=== PATIENT | male | born 1940 | race Caucasian/White ===

== ENCOUNTER 2017-01-02 20:52 | Inpatient (IN) | payer OTHER, MEDICARE ==
[~2017-01-02] VITALS: Ht 167.6 cm; Wt 85.5 kg
[2017-01-02 01:45] VITALS: BP 133/69; PULSE 68; RESP 20; TEMP 97; O2SAT 97
[~2017-01-02 20:52] MED LIST: AMLO5 PO; LISI-515 PO; OMEP20TA PO; SIMV40TA PO; TRAM50TA PO
[2017-01-02 21:10] VITALS: BP 142/81; PULSE 72; RESP 18; TEMP 97.9; O2SAT 100
[2017-01-02 21:15] LABS: MEAN CORPUSCULAR HGB CONC 29.5 % (32.0-36.0)
[2017-01-02] MEDS ORDERED: ACETAMINOPHEN 325 MG TAB PO PRN (21:15)
[2017-01-02] MEDS ORDERED: SENNOSIDES 8.6 MG TAB PO PRN (21:15)
[2017-01-02] MEDS ORDERED: NALOXONE HCL 0.4 MG/ML AMP IV PRN (21:15)
[2017-01-02] MEDS ORDERED: SODIUM CHLOR 0.9% 250 ML INJ 250 ML IV ONE (21:15)
[2017-01-02] MEDS ORDERED: FUROSEMIDE 20 MG/2 ML VIAL IV ONE (21:15)
[2017-01-02] MEDS ORDERED: MAGNESIUM HYDROXIDE SUSP 30 ML CUP PO PRN (21:15)
[2017-01-02] MEDS ORDERED: ONDANSETRON HCL 4 MG/2 ML VIAL IVP PRN (21:15)
[2017-01-02 21:57] LABS: REVIEW FLAG FINAL
[2017-01-02 22:01] LABS: HEMATOCRIT 20.5 % (39.0-51.0)
[2017-01-02 22:33] VITALS: PULSE 71
[2017-01-03] VITALS (9 sets, daily range): BP systolic 123–145; BP diastolic 63–79; PULSE 57–98; RESP 16–20; TEMP 96.6–98.6; O2SAT 96–100
[2017-01-03] MEDS: PANTOPRAZOLE SOD 40 MG DELAYED RELEASE TAB PO SCH ×2 (01:38→08:27)
[2017-01-03] MEDS ORDERED: TEMAZEPAM 7.5 MG CAP PO ONE (01:45)
[2017-01-03 08:18] LABS: POTASSIUM 3.6 MEQ/L (3.5-5.1)
[2017-01-03 08:20] LABS: AUTOMATED NEUTROPHIL # 4.8 TH/MM3 (1.8-7.7); BASOPHIL % 0.4 % (0.0-2.0); EOSINOPHIL % 0.3 % (0.0-4.0); HEMATOCRIT 25.5 % (39.0-51.0); LYMPH % 19.7 % (9.0-44.0); LYMPHOCYTE # 1.3 TH/MM3 (1.0-4.8); MEAN CELL VOLUME 67.3 FL (80.0-100.0); MEAN CORPUSCULAR HEMOGLOBIN 19.8 PG (27.0-34.0); MONO % 8.3 % (0.0-8.0); NEUT % 71.3 % (16.0-70.0); PLATELET COUNT 295 TH/MM3 (150-450); RED BLOOD COUNT 3.78 MIL/MM3 (4.50-5.90); RED CELL DISTRIBUTION WIDTH 24.5 % (11.6-17.2); WHITE BLOOD COUNT 6.6 TH/MM3 (4.0-11.0)
[2017-01-03 08:26] LABS: HEMO FLAGS AUTO DIFF
[2017-01-03 08:53] LABS: PLATELET ESTIMATE SMEAR NORMAL (NORMAL); PLATELET MORPHOLOGY NORMAL (NORMAL); ROULEAUX PRESENT (NORMAL); SCAN/DIFF AUTO DIFF CONFIRMED
--- NOTE | 2017-01-03 12:03 | HHI.HP ---
[facility] Non-Staff Admission Diagnosis Diagnoses: (1) Anemia Diagnosis: Principal (2) Hypertension Diagnosis: Secondary (3) Hyperlipidemia Diagnosis: Secondary Chief Complaint: Brought in by family because he looked yellow Travel History International Travel<30 Days: No Contact w/Intl Traveler <30 Da: No Traveled to Known Affected Are: No History of Present Illness Written by Ric Ambrocio, acting as scribe for Dr. Kendall on 01/03/17 at 11:55. 76 year-old male with known history of hypertension, hyperlipidemia who presented to hospital at the request of his family because he looked yellow. The patient has been in normal state of health taking care of his who is had a stroke. He indicates that his family noticed that he may be turning yellow so they brought him to the hospital for evaluation. Patient had workup done emergency department found to have severe anemia with hemoglobin 5.3. The patient has been asymptomatic without any shortness of breath, dyspnea , fatigue. He indicates that he has not noticed any dark coloration to his stool or any bright red blood. 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 Approximate one time per week. Patient denies any bucket wash operator and has not had any recent endoscopy. Patient has had a weight loss of 12 pounds over the last 3 months. Review of Systems Constitutional: COMPLAINS OF: Weight loss, DENIES: Diaphoretic episodes, Fatigue, Fever, Weight gain, Chills, Dizziness, Change in appetite, Night Sweats Eyes: DENIES: Blurred vision, Diplopia, Eye inflammation, Eye pain, Vision loss , Double Vision Ears, nose, mouth, throat: COMPLAINS OF: Vertigo, DENIES: Hearing loss, Nasal discharge, Throat pain, Ear Pain, Running Nose, Sinus Pain Respiratory: DENIES: Apneas, Cough, Snoring, Wheezing, Hemoptysis, Sputum production, Shortness of breath Cardiovascular: DENIES: Chest pain, Palpitations, Syncope, Dyspnea on Exertion , Lower Extremity Edema, Orthopnea Gastrointestinal: DENIES: Abdominal pain, Black stools, Bloody stools, Constipation, Diarrhea, Nausea, Vomiting, Difficulty Swallowing, Anorexia Neurologic: DENIES: Abnormal gait, Headache, Localized weakness, Paresthesias, Seizures, Speech Problems, Tremor, Poor Balance Past Family Social History Past Medical History Hypertension Hyperlipidemia Past Surgical History Bilateral ankle surgery Reported Medications Reported Meds & Active Scripts Active Reported Simvastatin 40 Mg Tab 40 Mg PO HS Lisinopril 20 Mg Tab 20 Mg PO DAILY Omeprazole 20 Mg Tab 20 Mg PO DAILY Tramadol (Tramadol HCl) 50 Mg Tab 50 Mg PO Q6H PRN Norvasc (Amlodipine Besylate) 5 Mg Tab 5 Mg PO DAILY Allergies: Coded Allergies: No Known Allergies (Unverified , 01/02/17) Family History Reviewed and rather unremarkable. He indicates that his sister had had cancer but unknown type. Social History Patient is and takes care of his at home. He does have 6 children. Denies any tobacco or illicit drug use. Does drink alcohol every blue vaca Physical Exam Vital Signs Vital Signs Date Time Temp Pulse Resp B/P Pulse Ox O2 Delivery O2 Flow Rate FiO2 01/03/17 08:00 96.9 60 20 129/79 100 01/03/17 04:11 97.4 66 20 123/69 98 01/03/17 04:00 97.4 66 20 123/69 98 01/03/17 03:56 97.0 98 20 123/72 97 01/03/17 01:25 96.6 80 20 136/78 98 01/03/17 00:00 97.1 69 16 143/67 97 01/02/17 22:33 71 01/02/17 21:10 97.9 72 18 142/81 100 Physical Exam GENERAL: Well-developed, well-nourished, in no acute distress. alert and orientated HEENT: Head is normocephalic without any lesions or masses noted. Facial features are symmetric. Eyes: Pupils equal round reactive to light. Extraocular muscles are intact. Conjunctivae were clear. Oropharyngeal: Pharynx without any erythema edema. Tongue is midline without deviation. Buccal mucosa is moist without any masses or lesions NECK: Supple without any masses. Trachea midline no deviation. No JVD, no bruits are appreciated CARDIAC: Regular rhythm, regular rate. S1/S2 are heard. No murmurs gallops or rubs. LUNGS: Clear to auscultation bilaterally. No wheeze, rhonchi or rales. No use of accessory muscles on inspiration or expiration. ABDOMEN: Soft, nontender. Nondistended. Bowel sounds heard in all 4 quadrants. No organomegaly or masses. Negative rebound, negative guarding EXTREMITIES: No edema, pulses are equal bilaterally. No cyanosis or clubbing NEUROLOGY: Mood and affect appear appropriate. Cranial nerves II through XII grossly intact. Muscle strength 5/5 in upper and lower extremities bilaterally. Deep tendon reflexes are 2+ in upper and lower extremities bilaterally. Laboratory Laboratory Tests Test 01/02/17 01/02/17 01/03/17 21:30 21:40 07:45 Hemoglobin 5.8 7.5 Hematocrit 20.5 25.5 Blood Type B POSITIVE B POSITIVE Antibody Screen NEGATIVE Crossmatch Leukocyte-Reduced Red Blood Cells Blood Bank Comment White Blood Count 6.6 Red Blood Count 3.78 Mean Corpuscular Volume 67.3 Mean Corpuscular Hemoglobin 19.8 Mean Corpuscular Hemoglobin 29.5 Concent Red Cell Distribution Width 24.5 Platelet Count 295 Mean Platelet Volume 7.6 Neutrophils (%) (Auto) 71.3 Lymphocytes (%) (Auto) 19.7 Monocytes (%) (Auto) 8.3 Eosinophils (%) (Auto) 0.3 Basophils (%) (Auto) 0.4 Neutrophils # (Auto) 4.8 Lymphocytes # (Auto) 1.3 Monocytes # (Auto) 0.5 Eosinophils # (Auto) 0.0 Basophils # (Auto) 0.0 CBC Comment AUTO DIFF Differential Comment AUTO DIFF CONFIRMED Platelet Estimate NORMAL Platelet Morphology Comment NORMAL Rouleau PRESENT Sodium Level 146 Potassium Level 3.6 Chloride Level 109 Carbon Dioxide Level 27.0 Anion Gap 10 Blood Urea Nitrogen 15 Creatinine 0.84 Estimat Glomerular Filtration 89 Rate Random Glucose 98 Calcium Level 8.9 Result Diagram: 01/03/17 0745 01/03/17 0745 Assessment and Plan Problem List: (1) Anemia ICD Code: D64.9 Status: Acute Plan: Unknown etiology at this time, patient does have decreased MCV which could be from chronic iron deficiency with associated GI bleed, malabsorption iron due to duodenitis, Status post transfusion of 2 units of packed red blood cells We'll need to check stool for occult blood Difficult to ascertain etiology due to limited pretransfusion blood for accurate testing Consult bucket wash operator for likely endoscopies Continue trend hemoglobin and hematocrit (2) Hypertension ICD Code: I10 Status: Acute Plan: Blood pressure stable this time Continue home medications (3) Hyperlipidemia ICD Code: E78.5 Status: Acute Plan: Patient's home medications will be started Assessment and Plan DVT prevention Sequential compression devices, avoid chemical prophylaxis due to anemia This note was transcribed by jose cruz Ambrocio. I, Dr. Bonifacio Bradley personally performed the history, physical exam, and medical decision making; and confirmed the accuracy of the information in the transcribed note. Authenticated by Dr. Bonifacio Bradley on 01/03/17 at 14:11. Physician Certification 2 Midnight Certification Type: Admission for Inpatient Services Order for Inpatient Services The services are ordered in accordance with Medicare regulations or non- Medicare payer requirements, as applicable. In the case of services not specified as inpatient-only, they are appropriately provided as inpatient services in accordance with the 2-midnight benchmark. Estimated LOS (days): 2 days is the estimated time the patient will need to remain in the hospital, assuming treatment plan goals are met and no additional complications. Post-Hospital Plan: Not yet determined Problem Qualifiers (1) Anemia: Qualified Code: D64.9 - Anemia, unspecified type Ric Ambrocio Jan 03, 2017 12:03 Bonifacio Lanier MD Jan 03, 2017 14:12
[2017-01-03 15:39] LABS: RETIC % 1.5 % (0.4-3.0)
[2017-01-03 15:59] LABS: REVIEW FLAG FINAL
[2017-01-03] MEDS ORDERED: PEG (High)/E-LYTE SOLN 4000 ML BTL PO ONE (16:30)
[2017-01-03 16:36] LABS: FERRITIN 3 NG/ML (26-388); LDH SERUM 231 U/L (87-241); TRANSFERRIN IRON PROFILE 400 MG/DL (200-360)
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
[2017-01-03 19:04] LABS: HEMATOCRIT 27.9 % (39.0-51.0); MEAN CELL VOLUME 68.6 FL (80.0-100.0); MEAN CORPUSCULAR HEMOGLOBIN 20.7 PG (27.0-34.0); MEAN CORPUSCULAR HGB CONC 30.1 % (32.0-36.0); PLATELET COUNT 333 TH/MM3 (150-450); RED BLOOD COUNT 4.06 MIL/MM3 (4.50-5.90); RED CELL DISTRIBUTION WIDTH 24.9 % (11.6-17.2); WHITE BLOOD COUNT 9.9 TH/MM3 (4.0-11.0)
[2017-01-03 19:07] LABS: HEMO FLAGS AUTO DIFF
[2017-01-03 19:22] LABS: NEUTROPHIL # MANUAL DIFF 8.4 TH/MM3 (1.8-7.7); PLATELET ESTIMATE SMEAR NORMAL (NORMAL); PLATELET MORPHOLOGY NORMAL (NORMAL); POLYS (SEG NEUTROPHILS) 85 % (16-70); SCAN/DIFF FINAL DIFF MANUAL; WBC DIFF SAMPLE 100
[2017-01-04] VITALS: BP 147/78; PULSE 71; RESP 18; TEMP 98.3; O2SAT 96
[2017-01-04 04:00] VITALS: BP 139/87; PULSE 67; RESP 18; TEMP 97.9; O2SAT 98
[2017-01-04 06:40] VITALS: BP 139/87; PULSE 67; RESP 18; TEMP 97.9; O2SAT 98
[2017-01-04] MEDS ORDERED: PROPOFOL 200 MG/20 ML AMP IV ONE (07:15)
[2017-01-04] MEDS ORDERED: LIDOCAINE HCL 1% PF 5 ML AMPULE OTHER ONE (07:15)
--- NOTE | 2017-01-04 07:54 | GIPROC ---
[address], [address] COLONOSCOPY PROCEDURE REPORT EXAM DATE: 01/04/2017 PATIENT NAME: Yariel Rodriguez MR #: [id number] BIRTHDATE: 1940 ENDOSCOPIST: Heike Pennington MD ORDER #: [id number] TILTING SAW OPERATOR: Alanis Dillard RN STATUS: inpatient INDICATIONS: The patient is a 76 yr old male here for a colonoscopy due to iron deficiency anemia Submucosal injection, any substance MEDICATIONS: None and Per Anesthesia. PREP QUALITY: good PREP TYPE:GoLytely ESTIMATED BLOOD LOSS: None CONSENT: The patient understands the risks and benefits of the procedure and understands that these risks include, but are not limited to: sedation, allergic reaction, infection, perforation and/or bleeding. Alternative means of evaluation and treatment include, among others: physical exam, x-rays, and/or surgical intervention. The patient elects to proceed with this endoscopic procedure. medical equipment was checked for proper function. Hand hygiene and appropriate measures for infection prevention was taken. After the risks, benefits and alternatives of the procedure were thoroughly explained, Informed consent was verified, confirmed and timeout was successfully executed by the treatment team. A digital exam revealed hemorrhoids The endoscope was introduced through the anus and advanced to the cecum, which was identified by both the appendix and ileocecal valve. The instrument was then slowly withdrawn as the colon was fully examined. COLON FINDINGS: Diverticulosis sigmoid, descending mass cecum, ulcerated-multiple biopsies taken polyps in ascending-one 5 mm-hot snare polypectomy with complete removal, another flat 1 cm wide polyps-suspicious appearence-hot snare polypectomy with removal, site wa marked with 5 cc Inia ink polyp sessile midtransverse -6 mm-hot snare polypectomy with complete removal polyp splenic flexure -6 mm hot snare polypectomy with complete removal proctitis rectum-biopsy. Retroflexed views revealed internal hemorrhoids and Retroflexed views revealed medium internal hemorrhoids The scope was then completely withdrawn from the patient and the procedure terminated. PROCEDURE WITHDRAWAL TIME:14minutes ADVERSE EVENTS: There were no complications. IMPRESSIONS: 1. Diverticulosis sigmoid, descending mass cecum, ulcerated-multiple biopsies taken polyps in ascending-one 5 mm-hot snare polypectomy with complete removal, another flat 1 cm wide polyps-suspicious appearence-hot snare polypectomy with removal, site wa marked with 5 cc Inia ink polyp sessile midtransverse -6 mm-hot snare polypectomy with complete removal polyp splenic flexure -6 mm hot snare polypectomy with complete removal proctitis rectum-biopsy 2. Retroflexed views revealed internal hemorrhoids 3. Retroflexed views revealed medium internal hemorrhoids 4. Revealed hemorrhoids RECOMMENDATIONS: 1. Await biopsy results. Biopsy results will not be ready for 7-10 days. If you don't hear from us in two weeks, call our office for results. 2. Probiotics from any [employer] or health food store 3. Yearly rectal exams 4. Ct abdomen/pelvis, ct chest cea levels family screening for colon cancer colorectal surgery consult RECALL: Colonoscopy, pending biopsy results Heike Pennington MD eSigned: Heike Pennington MD 01/04/2017 7:54 AM cc: PATIENT NAME: Yariel Rdoriguez MR#: [id number]
--- NOTE | 2017-01-04 07:57 | GIPROC ---
[facility] [address] [place] [address], [address] EGD PROCEDURE REPORT EXAM DATE: 01/04/2017 PATIENT NAME: Yariel Rodriguez MR #: [id number] BIRTHDATE: 1940 ATTENDING: Heike Pennington MD ORDER #: [id number] SECTION HAND: Hannah Mcdermott and Alanis Dillard STATUS: inpatient INDICATIONS: The patient is a 76 yr old male here for an EGD due to iron deficiency anemia PROCEDURE PERFORMED: EGD w/ biopsy MEDICATIONS: None and Per Anesthesia. TOPICAL ANESTHETIC: CONSENT: The patient understands the risks and benefits of the procedure and understands that these risks include, but are not limited to: sedation, allergic reaction, infection, perforation and/or bleeding. Alternative means of evaluation and treatment include, among others: physical exam, x-rays, and/or surgical intervention. The patient elects to proceed with this endoscopic procedure. medical equipment was checked for proper function. Hand hygiene and appropriate measures for infection prevention was taken. After the risks, benefits and alternatives of the procedure were thoroughly explained, Informed consent was verified, confirmed and timeout was successfully executed by the treatment team. The patient was anesthetized with topical anesthesia and the [id number] (Pedi C) endoscope was introduced through the mouth and advanced to the second portion of the duodenum. Retroflexed views revealed a hiatal hernia The gastroscope was then slowly withdrawn and removed. Normal duodenum-biopsy gastritis antrum-biopsy Schatzki's ring. ADVERSE EVENTS: There were no complications. IMPRESSIONS: 1. Normal duodenum-biopsy gastritis antrum-biopsy Schatzki's ring 2. Retroflexed views revealed a hiatal hernia RECOMMENDATIONS: 1. Await biopsy results. Biopsy results will not be ready for 7-10 days. If you don't hear from us in two weeks, call our office for biopsy results. 2. Anti-reflux regimen PATIENT CONDITION: stable DISPOSITION: Inpatient REPEAT EXAM: EGD pending biopsy results Heike Pennington MD eSigned: Heike Pennington MD 01/04/2017 7:56 AM cc:
[2017-01-04] MEDS: PANTOPRAZOLE SOD 40 MG DELAYED RELEASE TAB PO SCH (08:56)
[2017-01-04] MEDS ORDERED: DIATRIZOATE MEGLUM/DIATRIZOATE SOD 9 ML CUP PO ONE (09:00)
[2017-01-04 09:44] LABS: MEAN CORPUSCULAR HGB CONC 29.9 % (32.0-36.0)
[2017-01-04 10:52] LABS: AUTOMATED NEUTROPHIL # 3.9 TH/MM3 (1.8-7.7); BASOPHIL % 0.4 % (0.0-2.0); EOSINOPHIL % 0.6 % (0.0-4.0); HEMATOCRIT 26.9 % (39.0-51.0); LYMPH % 22.6 % (9.0-44.0); LYMPHOCYTE # 1.2 TH/MM3 (1.0-4.8); MEAN CELL VOLUME 68.4 FL (80.0-100.0); MEAN CORPUSCULAR HEMOGLOBIN 20.5 PG (27.0-34.0); MONO % 7.5 % (0.0-8.0); NEUT % 68.9 % (16.0-70.0); PLATELET COUNT 268 TH/MM3 (150-450); RED BLOOD COUNT 3.93 MIL/MM3 (4.50-5.90); RED CELL DISTRIBUTION WIDTH 25.5 % (11.6-17.2); WHITE BLOOD COUNT 5.5 TH/MM3 (4.0-11.0)
[2017-01-04 10:59] LABS: CHLORIDE 110 MEQ/L (98-107); POTASSIUM 3.5 MEQ/L (3.5-5.1); SODIUM (NA) 145 MEQ/L (136-145)
[2017-01-04 11:04] LABS: ANION GAP 6 MEQ/L (5-15); BLOOD UREA NITROGEN 12 MG/DL (7-18)
[2017-01-04 11:07] LABS: ALT (GPT) 20 U/L (12-78); AST (GOT) 17 U/L (15-37); GLOMERULAR FILTRATION RATE 94 ML/MIN (>89)
[2017-01-04 11:08] LABS: HEMO FLAGS AUTO DIFF; TOTAL BILIRUBIN ADULT 0.4 MG/DL (0.2-1.0)
[2017-01-04 11:10] LABS: ALKALINE PHOSPHATASE 72 U/L (45-117)
[2017-01-04] MEDS ORDERED: IOHEXOL 350 MG/ML 10 ML VIAL (for RAD DIAG) IV ONE (11:18)
--- NOTE | 2017-01-04 11:31 | RADRPT ---
EXAM DATE/TIME: 01/04/2017 10:53 [facility] COMPARISON: No previous studies available for comparison. INDICATIONS : Cecal mass. IV CONTRAST: 85 cc Omnipaque 350 (iohexol) IV ; Cumulative dose for multiple exams. RADIATION DOSE: 17.67 CTDIvol (mGy) ; Combined studies - Thorax/Abdomen/Pelvis MEDICAL HISTORY : Gastroesophageal reflux disease. Hypertension. SURGICAL HISTORY : Left hip repair. ENCOUNTER: Initial ACUITY: 1 day PAIN SCALE: 0/10 LOCATION: chest TECHNIQUE: Volumetric scanning of the chest was performed. Using automated exposure control and adjustment of t he mA and/or kV according to patient size, radiation dose was kept as low as reasonably achievable to obtain optimal diagnostic quality images. DICOM format image data is available electronically for review and comparison. FINDINGS: LUNGS: There is a 3 mm pulmonary nodule in the peripheral right middle lobe. Otherwise, the lungs are clear and well aerated. No focal or acute pulmonary infiltrates are demonstrated. PLEURA: There is no pleural thickening or pleural effusion. MEDIASTINUM: The heart and great vessels demonstrate no acute abnormality. There is no mediastinal or hilar lymph adenopathy. AXILLAE: Within normal limits. No lymphadenopathy. SKELETAL: Within normal limits for patient age. MISCELLANEOUS: The visualized upper abdominal organs demonstrate no acute abnormality. CONCLUSION: 1. There is a 3 mm pulmonary nodule in the right middle lobe. This finding is nonspecific. Recommend followup noncontrast CT thorax in 6 months. 2. No focal or acute intrathoracic disease. Eric Gay MD on January 04, 2017 at 11:26 Board Certified Radiologist. This report was verified electronically.
--- NOTE | 2017-01-04 11:41 | RADRPT ---
EXAM DATE/TIME: 01/04/2017 10:53 [facility] COMPARISON: No previous studies available for comparison. INDICATIONS : Cecal mass. IV CONTRAST: 85 cc Omnipaque 350 (iohexol) IV ; Cumulative dose for multiple exams. ORAL CONTRAST: Prescribed oral contrast ingested. RADIATION DOSE: 17.67 CTDIvol (mGy) ; Combined studies - Thorax/Abdomen/Pelvis MEDICAL HISTORY : Gastroesophageal reflux disease. Hypertension. SURGICAL HISTORY : Left hip repair. ENCOUNTER: Initial ACUITY: 1 day PAIN SCALE: 0/10 LOCATION: Abdomen TECHNIQUE: Volumetric scanning of the abdomen and pelvis was performed. Using automated exposure control and ad justment of the mA and/or kV according to patient size, radiation dose was kept as low as reasonably achievable to obtain optimal diagnostic quality images. DICOM format image data is available electro nically for review and comparison. FINDINGS: LOWER LUNGS: The visualized lower lungs are clear. LIVER: Homogeneous density without lesion. There is no dilation of the biliary tree. No calcified gallston es. SPLEEN: Normal size without lesion. PANCREAS: Within normal limits. KIDNEYS: Normal in size and shape. There is no mass, stone or hydronephrosis. There are 2 small cysts along t he lower pole the left kidney measuring 1.1 cm and 0.7 cm. ADRENAL GLANDS: Within normal limits. VASCULAR: There is no aortic aneurysm. BOWEL/MESENTERY: Bowel gas pattern is within normal limits. There is no evidence of obstruction. Contrast is seen thro ughout the small and large bowel. There appears to be a soft tissue concentric lesion involving the r ight ascending colon just above the cecum suspicious for neoplastic disease. There is also some incre ased prominence of the ileocecal valve. ABDOMINAL WALL: Within normal limits. RETROPERITONEUM: There is no lymphadenopathy. BLADDER: No wall thickening or mass. REPRODUCTIVE: Within normal limits. INGUINAL: There is no lymphadenopathy or hernia. MUSCULOSKELETAL: Within normal limits for patient age. No gross lytic or blastic lesions are seen. There is evidence o f previous internal fixation to the left proximal femur. There are degenerative changes present. CONCLUSION: 1. Soft tissue concentric lesion involving the right ascending colon suspicious for neoplastic diseas e. There also appears to be some prominence involving the ileocecal valve. There is no evidence of me chanical obstruction. 2. 2 small benign-appearing left renal cyst area Eric Gay MD on January 04, 2017 at 11:34 Board Certified Radiologist. This report was verified electronically.
[2017-01-04 12:00] VITALS: BP 142/73; PULSE 56; RESP 20; TEMP 97.4; O2SAT 99
[2017-01-04 12:03] LABS: PLATELET ESTIMATE SMEAR NORMAL (NORMAL); PLATELET MORPHOLOGY ENLARGED (NORMAL); SCAN/DIFF AUTO DIFF CONFIRMED
--- NOTE | 2017-01-04 14:07 | HHI.PR ---
Subjective Remarks patient denies cp/sob denies melena sp EGD and colonoscopy this am Objective Vitals Vital Signs Date Time Temp Pulse Resp B/P Pulse Ox O2 Delivery O2 Flow Rate FiO2 01/04/17 12:00 97.4 56 20 142/73 99 01/04/17 08:50 97.1 62 16 92/65 100 01/04/17 06:40 97.9 67 18 139/87 98 01/04/17 04:00 97.9 67 18 139/87 98 01/04/17 00:00 98.3 71 18 147/78 96 01/03/17 20:00 97.9 57 18 145/77 98 01/03/17 16:00 98.5 59 20 131/75 96 I/O 01/03/17 01/03/17 01/03/17 01/04/17 01/04/17 01/04/17 07:00 15:00 23:00 07:00 15:00 23:00 Intake Total 980 ml 750 ml 240 ml 1000 ml 610 ml Output Total 350 ml 300 ml 1000 ml Balance 630 ml 750 ml -60 ml 0 ml 610 ml Intake Oral 480 ml 750 ml 240 ml 1000 ml 610 ml Packed Cells 500 ml Output Urine Total 350 ml 300 ml 1000 ml # Voids 3 5 3 # Bowel Movements 0 2 4 4 1 Result Diagram: 01/04/1790401/04/17904 Imaging Last Impressions Chest CT 01/04/17 0000 Signed Impressions: Service Date/Time: December 10:53 - CONCLUSION: 1. There is a 3 mm pulmonary nodule in the right middle lobe. This finding is nonspecific. Recommend followup noncontrast CT thorax in 6 months. 2. No focal or acute intrathoracic disease. Eric Gay MD Abdomen/Pelvis CT 01/04/17 0000 Signed Impressions: Service Date/Time: December 10:53 - CONCLUSION: 1. Soft tissue concentric lesion involving the right ascending colon suspicious for neoplastic disease. There also appears to be some prominence involving the ileocecal valve. There is no evidence of mechanical obstruction. 2. 2 small benign-appearing left renal cyst area Eric Gay MD Objective Remarks GENERAL: Well-developed, well-nourished, in no acute distress. alert and orientated HEENT: Head is normocephalic without any lesions or masses noted. Facial features are symmetric. Eyes: Pupils equal round reactive to light. Extraocular muscles are intact. Conjunctivae were clear. Oropharyngeal: Pharynx without any erythema edema. Tongue is midline without deviation. Buccal mucosa is moist without any masses or lesions NECK: Supple without any masses. Trachea midline no deviation. No JVD, no bruits are appreciated CARDIAC: Regular rhythm, regular rate. S1/S2 are heard. No murmurs gallops or rubs. LUNGS: Clear to auscultation bilaterally. No wheeze, rhonchi or rales. No use of accessory muscles on inspiration or expiration. ABDOMEN: Soft, nontender. Nondistended. Bowel sounds heard in all 4 quadrants. No organomegaly or masses. Negative rebound, negative guarding EXTREMITIES: No edema, pulses are equal bilaterally. No cyanosis or clubbing NEUROLOGY: Mood and affect appear appropriate. Cranial nerves II through XII grossly intact. Muscle strength 5/5 in upper and lower extremities bilaterally. Deep tendon reflexes are 2+ in upper and lower extremities bilaterally. Medications and IVs Current Medications Medications (Trade) Dose Ordered Sig/Tariq Route Start Time Stop Time Status Last Admin (Tylenol) 650 mg Q4H PRN PO 01/02/17 21:15 (Zofran Inj) 4 mg Q6H PRN IVP 01/02/17 21:15 (Narcan Inj) 0.4 mg UNSCH PRN IV 01/02/17 21:15 (Milk Of Magnesia Liq) 30 ml Q12H PRN PO 01/02/17 21:15 (Senokot) 17.2 mg Q12H PRN PO 01/02/17 21:15 (Protonix) 40 mg DAILY PO 01/02/17 21:30 01/04/17 08:56 Urinary Catheter: No Vascular Central Line Catheter: No A/P Problem List: (1) Anemia ICD Code: D64.9 Status: Acute Plan: Unknown etiology at this time, patient does have decreased MCV which could be from chronic iron deficiency with associated GI bleed, malabsorption iron due to duodenitis, Status post transfusion of 2 units of packed red blood cells We'll need to check stool for occult blood ---> pending 01/04 sp EGD and colonoscopy with biopsies. Colonoscopy showed sigmoid diverticulosis, mass in the descending cecum which is ulcerated, polypoid status post polypectomy. Agree with CT of the chest and abdomen and pelvis to look for any metastatic lesions, colorectal surgery consultation and oncology consultation as per patient's family request. EGD showed gastritis, Schatzki's ring, continue PPI. Iron studies consistent with iron deficiency anemia. Patient status post fusion of packed red blood cells, I will start the patient on oral ferrous sulfate. (2) Hypertension ICD Code: I10 Status: Acute Plan: Blood pressure stable this time Patient had recorded episode of hypotension with systolic blood pressure in the 90s, however this has resolved. Continue antihypertensive medications with holding parameters. (3) Hyperlipidemia ICD Code: E78.5 Status: Acute Plan: Continue statin Assessment and Plan GI prophylaxis: Continue PPI. DVT prophylaxis SCDs, no chemoprophylaxis given severe anemia. Discharge Planning Pending colorectal surgery, oncology consultation, pending CT abdomen and pelvis and chest results. Problem Qualifiers (1) Anemia: Qualified Code: D64.9 - Anemia, unspecified type Bonifacio Lanier MD Jan 04, 2017 14:07
[2017-01-04] MEDS ORDERED: traMADol HCL 50 MG TAB PO PRN (14:15)
[2017-01-04] MEDS: amLODIPine BESYLATE 5 MG TAB PO SCH (14:58)
[2017-01-04 15:31] VITALS: BP 114/69; PULSE 55; RESP 20; TEMP 97.8; O2SAT 97
[2017-01-04 17:11] LABS: MEAN CORPUSCULAR HGB CONC 29.9 % (32.0-36.0)
--- NOTE | 2017-01-04 17:39 | EKG ---
Date Performed: 01/04/2017 Time Performed: 07:06:09 PTAGE: 76 years EKG: SINUS BRADYCARDIA WITH FIRST DEGREE AV BLOCK LOW QRS VOLTAGE IN PRECORDIAL LEADS POSSIBLE R IGHT VENTRICULAR CONDUCTION DELAY ABNORMAL ECG NO PREVIOUS TRACING DOCTOR: Evelyn Gilbert Interpretating Date/Time 01/04/2017 17:35:49
[2017-01-04 18:04] LABS: MEAN CELL VOLUME 68.7 FL (80.0-100.0); MEAN CORPUSCULAR HEMOGLOBIN 20.6 PG (27.0-34.0); PLATELET COUNT 326 TH/MM3 (150-450); RED BLOOD COUNT 4.23 MIL/MM3 (4.50-5.90); RED CELL DISTRIBUTION WIDTH 25.6 % (11.6-17.2); WHITE BLOOD COUNT 10.1 TH/MM3 (4.0-11.0)
[2017-01-04 18:05] LABS: REVIEW FLAG FINAL
--- NOTE | 2017-01-04 18:23 | MB ---
cc: ALLY FREDERICK M.D., JOHN M. MD DATE OF CONSULTATION January 04, 2017 CHIEF COMPLAINT Ascending colon mass. HISTORY OF PRESENT ILLNESS The patient is a 76-year-old male who is particularly healthy. He was brought to the hospital yesterday because of jaundice. He had been feeling well and workup in the emergency department showed a hemoglobin of 8 and a severe anemia, hemoglobin of 5.3 and colonoscopy performed this morning reveals a mass in the ascending colon. The patient denies any chest pain, shortness of breath, dyspnea, fatigue. He has had a 12-13 pound weight loss over the last 3 months as well as some darker stool. He denies any hematuria or hematochezia. He has been moving his bowels between twice a day to every other day and this has not had any change. He denies any abdominal pain or rectal pain. He has had some intermittent nausea and vomiting. PAST MEDICAL HISTORY 1. Hypertensive. 2. Hyperlipidemia. 3. Traumatic brain injury. PAST SURGICAL HISTORY 1. Bilateral ankle surgery. 2. Hip pinning. ALLERGIES None. MEDICATIONS 1. Pravastatin. 2. Lisinopril. 3. Omeprazole. 4. Tramadol. 5. Norvasc. SOCIAL HISTORY The patient denies alcohol or illicit drugs. He does admit to an occasional cigar. He is accompanied by his and his daughter. Per the daughter his has had a severe hemorrhagic stroke and has trouble with her memory. REVIEW OF SYSTEMS The review of systems is negative for chest pain, fevers, weight, night sweats, change in vision, change in hearing, difficulty with mood or mentation, difficulty with ambulation. PHYSICAL EXAMINATION GENERAL: Physical exam reveals an alert male who appears comfortable. NEUROLOGIC: Grossly intact. SKIN: Skin is warm and dry. HEENT: Head is normocephalic, atraumatic. CARDIOVASCULAR: Cardiac there is a regular rhythm. CHEST: Breathing is symmetric bilaterally, nonlabored. ABDOMEN: Soft, nondistended, nontender. EXTREMITIES: Reveal no edema. LABORATORY DATA Laboratory work reveals hemoglobin of 8.0 this morning, up from a sujey of 5.8, white count is 5.5 and platelets are 268. Chemistry is essentially normal. IMAGING STUDIES CT scan of the abdomen reveals a soft tissue concentric lesion involving the ascending colon just above the cecum but with no sign of obstruction and two small benign appearing left renal cyst. CT scan of the chest reveals a 3 mm pulmonary nodule in the right middle lobe which is nonspecific. IMPRESSION Ascending colon mass, most likely carcinoma. PLAN A long discussion was undertaken with the patient and his daughter. I believe that the most appropriate thing if his hemoglobin remains stable overnight would be discharge home with followup in my office next week so we can expedite plan for a minimally invasive ascending colectomy. He will need evaluation by his primary care doctor. I have explained to the daughter that when he leaves the hospital if he begins having any more problems or symptoms they are to call me immediately and there is someone available through our office number 24 hours a day, 7 days a week. The natural staging of colon cancer was discussed with the patient as were the results of his chest and abdominal CT. Thank you very much for your kind referral. Ally Frederick MD KW/EO /5:19 PM /5:57 PM
[2017-01-04] MEDS: FERROUS SULFATE 325 MG (65 MG ELEMENTAL IRON) TAB PO SCH (18:30)
--- NOTE | 2017-01-04 18:35 | MB ---
cc: KAREN TEE M.D. DATE OF CONSULTATION: 01/04/2017. REASON FOR CONSULTATION: Oncology was consulted to render opinion regarding a patient with newly discovered colon mass. REQUESTING PHYSICIAN: Dr. Kendall. HISTORY OF PRESENT ILLNESS: The patient is a 76-year-old male with no significant past medical history brought into the hospital because a family member noted that he looked more yellow. The patient is a rather poor historian. According to his daughter, he has not been feeling well for about the last three weeks. He has increased weakness and he has also been having nausea. He has lost about twelve pounds over the last three months. He also has increased dyspnea on exertion. He was brought into the hospital and was found to have a hemoglobin of 5.8. He had colonoscopy which showed a cecal mass suspicious for colon cancer. He denies any fever or chills. Denies any chest pain or palpitation. Denies any cough. Denies any dysuria or hematuria. He denies any melena or hematochezia. PAST MEDICAL HISTORY: 1. Hypertension. 2. Hyperlipidemia. PAST SURGICAL HISTORY: Bilateral ankle surgery. FAMILY HISTORY: He has seven siblings and only three are living. He has three daughters and three sons, all healthy. A sister has some sort of cancer. SOCIAL HISTORY: He drinks occasionally. He does not smoke. ALLERGIES: NO KNOWN DRUG ALLERGIES. MEDICATION LIST: 1. Lisinopril. 2. Pravastatin. 3. Amlodipine. 4. Protonix. REVIEW OF SYSTEMS: CONSTITUTIONAL: As above. EYES: Denies any blurry vision or double vision. ENT: Denies any mouth sores or voice changes. CARDIOVASCULAR: Denies any chest pressure or palpitations. RESPIRATORY: ____ dyspnea on exertion. Denies any cough. GI: As above. : Denies any dysuria or hematuria. MUSCULOSKELETAL: Negative. HEMATOLOGIC: As above. ENDOCRINE: Negative. DERMATOLOGIC: Negative. PSYCHIATRIC: Negative. NEUROLOGIC: Negative. PHYSICAL EXAMINATION: VITAL SIGNS: Temperature 97.8, blood pressure 114/69, 02 saturation 97%. GENERAL: He is alert and oriented times three and in no acute distress. HEAD, EYES, EARS, NOSE, THROAT: Atraumatic, normocephalic. Pupils equal, round, reactive to light. Extraocular muscles intact. No scleral icterus. OROPHARYNX: Dry mucosa. No lesions. NECK: No thyromegaly. No palpable mass. LYMPHATIC: No palpable cervical, clavicular, axillary or inguinal lymph nodes. CARDIOVASCULAR: Regular S1 and S2. No murmur. LUNGS: Clear to auscultation bilaterally. No wheezing or rhonchi. ABDOMEN: Abdomen soft and nontender. I could not palpate liver or spleen. EXTREMITIES: No cyanosis, no clubbing, no edema. BACK: No paravertebral tenderness. SKIN: No rash or petechiae. NEUROLOGIC EXAM: Nonfocal. LABORATORY DATA: Reviewed. ASSESSMENT: 1. Colon mass suspicious for colon cancer. He presented with symptomatic anemia. Colonoscopy showed a mass in the cecum. It was ulcerated. No active bleeding noted. There were also multiple polyps and hemorrhoids noted. CT scan showed a soft tissue concentric lesion involving the right ascending colon. There is no clear adenopathy noted. There is no distant metastasis noted. CT of the chest showed nonspecific 3 mm nodule but no obvious mass or disease. CEA is normal. Biopsy of the colon mass is pending at this time. 2. Symptomatic anemia. He presented with a hemoglobin of 5.8 consistent with iron deficiency likely due to bleeding from the colonic mass. Upper endoscopy showed gastritis but no obvious bleeding. He was given two units of packed red blood cells transfusion. His hemoglobin has trended up. He will be started on iron supplement. 3. Nonspecific pulmonary nodule noted on CT scan. There was a 3 mm nodule in the right middle lobe and this will need to be monitored. 4. Hypertension. 5. Hyperlipidemia. DISCUSSION: I had an extensive discussion with the patient and multiple family members. We went over the radiologic findings and colonoscopic findings, probable diagnosis and management plan. At this point, the biopsy path is pending. CT did not show obvious metastatic disease. If the pathology confirms colon carcinoma, standard treatment is surgical resection. He has been evaluated by Dr. Frederick. I told them that the final staging will depend on the surgical path. If he has high risk colon cancer then he will need adjuvant chemotherapy. He stated that he will be discharged tomorrow to follow up with Dr. Frederick for definitive surgery. I told him to follow up with oncology after his surgery. They had many questions today which were answered. PLAN: 1. Await biopsy pathology. 2. Follow up with Dr. Frederick for definitive surgery. 3. I told the patient to follow up with oncology after his surgery. 4. Agree with iron supplement. The patient can be discharged from a medical oncology standpoint. Thank you, Dr. Kendall, for asking me to see this patient. MD JONAH Avina/FELIX /5:39 PM /6:03 PM JOSE J
[2017-01-04 20:00] VITALS: BP 124/69; PULSE 71; RESP 16; TEMP 98; O2SAT 95
[2017-01-04] MEDS ORDERED: PRAVASTATIN SOD 80 MG TAB PO SCH (21:00)
[2017-01-04 21:16] LABS: MEAN CORPUSCULAR HGB CONC 29.8 % (32.0-36.0)
[2017-01-04] MEDS ORDERED: TEMAZEPAM 7.5 MG CAP PO ONE (22:15)
[2017-01-05] VITALS: BP 139/73; PULSE 68; RESP 18; TEMP 97.8; O2SAT 92
[2017-01-05 06:24] LABS: HEMATOCRIT 27.8 % (39.0-51.0); MEAN CELL VOLUME 67.3 FL (80.0-100.0); MEAN CORPUSCULAR HEMOGLOBIN 20.1 PG (27.0-34.0); PLATELET COUNT 332 TH/MM3 (150-450); RED BLOOD COUNT 4.13 MIL/MM3 (4.50-5.90); RED CELL DISTRIBUTION WIDTH 25.8 % (11.6-17.2); WHITE BLOOD COUNT 7.9 TH/MM3 (4.0-11.0)
[2017-01-05 06:26] LABS: REVIEW FLAG FINAL
[2017-01-05 08:00] VITALS: BP 123/81; PULSE 61; RESP 20; TEMP 97.2; O2SAT 97
[2017-01-05] MEDS ORDERED: LISINOPRIL 20 MG TAB PO SCH (09:00)
[2017-01-05] MEDS: FERROUS SULFATE 325 MG (65 MG ELEMENTAL IRON) TAB PO SCH (09:02)
[2017-01-05] MEDS: PANTOPRAZOLE SOD 40 MG DELAYED RELEASE TAB PO SCH (09:02)
[2017-01-05] MEDS: amLODIPine BESYLATE 5 MG TAB PO SCH (09:03)
[2017-01-05 12:00] VITALS: BP 122/70; PULSE 62; RESP 20; TEMP 99.1; O2SAT 95
[2017-01-05 12:11] LABS: MEAN CORPUSCULAR HGB CONC 29.8 % (32.0-36.0)
[2017-01-05] MEDS ORDERED: FERR325T20 PO (12:13)
--- NOTE | 2017-01-05 12:19 | HHI.DCPOC ---
Discharge Care Plan Diagnosis: (1) Colonic mass (2) Iron deficiency anemia (3) Incidental lung nodule, less than or equal to 3mm (4) Hyperlipidemia (5) Hypertension Goals to Promote Your Health * To prevent worsening of your condition and complications * To maintain your health at the optimal level Directions to Meet Your Goals Take your medications as prescribed Follow your dietary instruction Follow activity as directed Keep your appointments as scheduled Take your immunizations and boosters as scheduled If your symptoms worsen call your PCP, if no PCP go to Urgent Care Center or Emergency Room Smoking is Dangerous to Your Health. Avoid second hand smoke Call the 24-hour hour crisis hotline for domestic abuse at Need to fu CT Chest with primary or oncology in 6 months to fu for pulmonary nodule. Bonifacio Lanier MD Jan 05, 2017 12:19
[2017-01-05 12:33] LABS: HEMATOCRIT 27.2 % (39.0-51.0); MEAN CELL VOLUME 67.1 FL (80.0-100.0); PLATELET COUNT 325 TH/MM3 (150-450); RED BLOOD COUNT 4.06 MIL/MM3 (4.50-5.90); WHITE BLOOD COUNT 6.1 TH/MM3 (4.0-11.0)
[2017-01-05 12:34] LABS: REVIEW FLAG FINAL
== END 2017-01-05 14:51 | disposition home or self-care (01) | DRG 375 ==
LOC: PHEDDLT 20:52 → PH3A 21:02 → OBSVTOIN 21:02
PROVIDERS: ADMIT Hospitalist; ATTEND Hospitalist
PROC: 30233N1 Transfusion of Nonautologous Red Blood Cells into Peripheral Vein, Percutaneous Approach (ICD-10-PCS; principal; 2017-01-02)
PROC: 0DBK8ZX Excision of Ascending Colon, Via Natural or Artificial Opening Endoscopic, Diagnostic (ICD-10-PCS; 2017-01-04)
PROC: 0DBL8ZX Excision of Transverse Colon, Via Natural or Artificial Opening Endoscopic, Diagnostic (ICD-10-PCS; 2017-01-04)
PROC: 0DBH8ZX Excision of Cecum, Via Natural or Artificial Opening Endoscopic, Diagnostic (ICD-10-PCS; 2017-01-04)
PROC: 0DBP8ZX Excision of Rectum, Via Natural or Artificial Opening Endoscopic, Diagnostic (ICD-10-PCS; 2017-01-04)
PROC: 0DB68ZX Excision of Stomach, Via Natural or Artificial Opening Endoscopic, Diagnostic (ICD-10-PCS; 2017-01-04 07:10)
DX: C18.0 Malignant neoplasm of cecum (principal); R17 Unspecified jaundice; K63.5 Polyp of colon; R06.09 Other forms of dyspnea; K22.2 Esophageal obstruction; D50.9 Iron deficiency anemia, unspecified; I10 Essential (primary) hypertension; K29.70 Gastritis, unspecified, without bleeding; E78.5 Hyperlipidemia, unspecified; R11.2 Nausea with vomiting, unspecified; Z87.820 Personal history of traumatic brain injury; R91.1 Solitary pulmonary nodule; K64.9 Unspecified hemorrhoids; K57.30 Diverticulosis of large intestine without perforation or abscess without bleeding; K44.9 Diaphragmatic hernia without obstruction or gangrene
CPT/HCPCS: 36430; 71260; 74177; 80048; 80053; 82272; 82378; 82607; 82728; 82746; 83010; 83540; 83550; 83615; 83690; 85007; 85014; 85018; 85025; 85027; 85044; 86850; 86900; 86901; 86920; 88305; 93005; 99285; J1940; J7050; P9016; Q9963; Q9967